=== PATIENT | female | born 1940 | race Caucasian/White ===

== ENCOUNTER 2017-11-04 09:02 | Day surgery (SDC) | payer MEDICARE ==
[2017-11-04] VITALS (15 sets, daily range): BP systolic 108–155; BP diastolic 63–81
[~2017-11-04] VITALS: Ht 162.6 cm; Wt 82.7 kg
[2017-11-04] MEDS ORDERED: normal saline 1000ml 1,000 ML IV PRN (09:30)
[2017-11-04] MEDS ORDERED: LIDOcaine 1%/PF 5ML 10 MG/ML VIAL IJ ONE (10:05)
[2017-11-04] MEDS ORDERED: MIDAZolam 1mg/ml 10ml vial IV ONE (10:10)
[2017-11-04] MEDS ORDERED: fentaNYL/PF 50MCG/1 ML 2ML syringe IV ONE (10:10)
[2017-11-04 10:44] LABS: BASOPHILS % (AUTO) 0.4 % (0-1); EOSINOPHILS # (AUTO) 0.1 X10'3 (0-0.9); EOSINOPHILS % (AUTO) 1.2 % (0-6); HEMATOCRIT 44.6 % (35.0-45.0); LYMPHOCYTES # (AUTO) 0.5 X10'3 (1.1-4.8); LYMPHOCYTES % (AUTO) 8.4 % (21-51); MEAN CORPUSCULAR HEMOGLOBIN 28.2 PG (27.0-31.0); MEAN CORPUSCULAR HGB CONC 31.5 % (33.0-36.5); MEAN CORPUSCULAR VOLUME 89.8 FL (78-98); MEAN PLATELET VOLUME 7.5 FL (7.4-10.4); MONOCYTES # (AUTO) 0.7 X10'3 (0-0.9); MONOCYTES % (AUTO) 10.8 % (2-12); NEUTROPHILS # (AUTO) 4.8 X10'3 (1.8-7.7); NEUTROPHILS % (AUTO) 79.2 % (42-75); PLATELET COUNT 223 X10'3 (140-440); RED BLOOD COUNT 4.97 X10'6 (4.20-5.60); RED CELL DISTRIBUTION WIDTH 20.4 % (11.5-14.5); WHITE BLOOD COUNT 6.1 X10'3 (4.5-11.0)
[2017-11-04] MEDS ORDERED: MULT-1141 PO (10:45)
[2017-11-04] MEDS ORDERED: AREDS PO (10:45)
[2017-11-04] MEDS ORDERED: PAZO200T PO (10:45)
[2017-11-04] MEDS ORDERED: ONDA4TAB12 PO (10:45)
[2017-11-04] MEDS ORDERED: LISI-600 PO (10:45)
[2017-11-04] MEDS ORDERED: CRAN500C4 PO (10:45)
[2017-11-04] MEDS ORDERED: HYDR-3965 PO (10:45)
[2017-11-04] MEDS ORDERED: AMIT-189 PO (10:45)
[2017-11-04] MEDS ORDERED: OMEP40CA37 PO (10:45)
[2017-11-04] MEDS ORDERED: CALCIUM/VITD PO (10:45)
[2017-11-04] MEDS ORDERED: SENN-161 PO (10:45)
[2017-11-04] MEDS ORDERED: AMIT-106 PO (10:45)
[2017-11-04 10:50] LABS: PROTHROMBIN TIME 10.7 SECONDS (9.0-12.0)
[2017-11-04] MEDS ORDERED: midazolam 2 mg/2 ml injection IV PRN (10:50)
[2017-11-04] MEDS ORDERED: fentaNYL/PF 50MCG/1 ML 2ML syringe IV PRN (10:50)
[2017-11-04 10:52] LABS: ALBUMIN 1.9 G/DL (3.4-5.0); ANION GAP 9 (8-16); BLOOD UREA NITROGEN 19 MG/DL (7-18); BUN/CREATININE RATIO 22.9 (6.6-38.0); CALCIUM 9.7 MG/DL (8.5-10.1); CHLORIDE 97 MMOL/L (99-107); CREATININE 0.83 MG/DL (0.40-0.90); GLUCOSE 96 MG/DL (70-104); POTASSIUM 4.5 MMOL/L (3.5-5.1); SODIUM 133 MMOL/L (135-145); TOTAL CARBON DIOXIDE 27.4 MMOL/L (24-32); eGFR 66 ML/MIN
[2017-11-04] MEDS ORDERED: normal saline 1000ml 1,000 ML IV SCH (11:31)
[2017-11-04] MEDS ORDERED: pneumococcal 23-VAL P-sac vacc 25 mcg/0.5ml vial IMVAC ONE (13:35)
== END 2017-11-04 14:30 | disposition home or self-care (01) ==
LOC: SSTAY O 09:02
PROVIDERS: ATTEND Radiology Diagnostic Radiology
DX: C78.7 Secondary malignant neoplasm of liver and intrahepatic bile duct (principal); Z23 Encounter for immunization; I10 Essential (primary) hypertension; M19.90 Unspecified osteoarthritis, unspecified site; J44.9 Chronic obstructive pulmonary disease, unspecified; Z87.891 Personal history of nicotine dependence; Z96.643 Presence of artificial hip joint, bilateral; Z96.651 Presence of right artificial knee joint; Z85.528 Personal history of other malignant neoplasm of kidney; Z92.21 Personal history of antineoplastic chemotherapy; Z92.3 Personal history of irradiation; Z85.3 Personal history of malignant neoplasm of breast; Z90.710 Acquired absence of both cervix and uterus; Z98.41 Cataract extraction status, right eye; Z98.42 Cataract extraction status, left eye; Z79.891 Long term (current) use of opiate analgesic; Z87.440 Personal history of urinary (tract) infections; Z72.89 Other problems related to lifestyle; Z90.12 Acquired absence of left breast and nipple; Z79.899 Other long term (current) drug therapy; Z98.890 Other specified postprocedural states
CPT/HCPCS: 36415; 47000; 76942; 80048; 85025; 85610; 88341; 88342; 90732; 99152; 99153; J2001; J2250; J3010; J7030; 88305; A4620